=== PATIENT | male | born 2000 | race Caucasian/White ===

== ENCOUNTER 2025-01-31 19:21 | Emergency (ER) | payer OTHER, BC | END 2025-01-31 20:20 | disposition home or self-care (01) | LOC: DL.ED 19:21 | DX: S80.11XA Contusion of right lower leg, initial encounter (principal); V40.5XXA Car driver injured in collision with pedestrian or animal in traffic accident, initial encounter; Y93.89 Activity, other specified | CPT/HCPCS: 99283 ==